=== PATIENT | female | born 1990 | race Caucasian/White ===

== ENCOUNTER 2019-07-14 08:07 | Outpatient (CLI) | payer BC ==
--- NOTE | 2019-07-14 09:02 | ULT ---
LIMITED RIGHT BREAST ULTRASOUND: Date: 07/14/19 PROVIDED CLINICAL HISTORY: Right breast palpable abnormality. FINDINGS: Limited sonographic interrogation was performed of the right breast in the region of palpable concern . The sonographic appearance of the breast tissue in this region is normal. IMPRESSION: No sonographic abnormality is evident in the region of palpable concern. If there is persistent clini keegan concern, consider diagnostic mammography. POS: OFF
== END 2019-07-14 08:08 | disposition home or self-care (01) ==
LOC: BICULT 08:07
PROVIDERS: ATTEND Obstetrics & Gynecology
DX: N63.14 Unspecified lump in the right breast, lower inner quadrant (principal)